=== PATIENT | male | born 1980 | race Caucasian/White ===

== ENCOUNTER 2023-08-14 12:13 | Emergency (ER) | payer BC, SELFPAY ==
[2023-08-14 12:41] VITALS: BP 136/99
[2023-08-14 14:04] VITALS: BMI 25.1
--- NOTE | 2023-08-14 14:26 | ED.GENMED ---
History of Present Illness
General
Chief Complaint: Fall
Source: patient
Time Seen by Provider: 08/14/23 13:55
Travel History
Have you had any contact with someone who has COVID-19?: No
Do you have any symptoms of coronavirus? Fever > 100 degrees, chills, cough, shortness of breath, sore throat, loss of taste or smell, muscle aches, or headache?: No
History of Present Illness
History of Present Illness:
42-year-old male presenting to the emergency department for evaluation after he accidentally fell last night around 10 PM, patient admits to having a couple of alcoholic beverages at the time and noted he sustained a laceration to the inner and
outer aspect of his lower lip. Patient states that due to the drinking did not feel it would be maldonado to drive to the emergency department so came to the ER today for further evaluation. He notes a chipped left lateral incisor to the upper jawline.
No other injuries were sustained. He denies any headache, loss consciousness, vomiting, visual changes or any other concerns. Patient states last tetanus was around 5 years ago.
Past History
Past History
ED Past Medical History: Psychiatric
ED Past Surgical History: None
Social History
Tobacco: Non-smoker
Alcohol: Occasional
Drug: None
Personal: Single
Living: alone
Review of Systems
Review of Systems
All Other Systems: ROS reviewed and negative except as documented in HPI and ROS
Phy Exam
Physical Exam
Physical Exam:
GENERAL: Alert , in no apparent distress
EYE: conjunctiva clear
Head: Laceration to the lower lip along the outer surface does not cross the vermilion border
NECK: Supple,
ENT: mmm. Jagged very superficial laceration to the lower lip mucosa is already well-approximated and has granulation tissue. The upper left lateral incisor small chip but no dental avulsion or dental fracture
LUNGS: no acute respiratory distress
NEUROLOGICAL: Alert and oriented
SKIN: Warm and dry, skin intact.
MUSCULOSKELETAL: well perfused.
PSYCH: Normal and appropriate interaction.
Scores
Heart Failure Risk
Heart Failure Risk Score: Not Applicable
Heart Score for Chest Pain Patients
STEMI patient?: Not applicable
Withdrawal Assessment of Alcohol
Withdrawal Assessment Completed?: Not applicable
Course
Vital Signs
Initial and Last Documented VS:
Initial Vital Signs
Temp Pulse Resp BP Pulse Ox
99.2 F 106 17 136/99 98
08/14/23 12:41 08/14/23 12:41 08/14/23 12:41 08/14/23 12:41 08/14/23 12:41
Last Documented Vital Signs
Temp Pulse Resp BP Pulse Ox
99.2 F 106 17 136/99 98
08/14/23 12:41 08/14/23 12:41 08/14/23 12:41 08/14/23 12:41 08/14/23 12:41
Procedures
Laceration Closure
Lower Lip:
Status of Wound: clean
Size of Wound in cm: 1.25
Description of Wound Edges: sharp
Preparation: cleaned with saline
Anesthesia: 1% Lidocaine
Revision/Debridement: routine- no revision
Type of Closure: single layer closure
Skin Closure Material: 6-0 nylon
Number of sutures: 7
MDM/Problems Addressed
Differential Diagnosis Includes:
Inner and outer lip laceration, chipped tooth, I do not have concern for intracranial pathology
MDM/Problems Addressed:
42-year-old male presenting emergency ferment for evaluation after an accidental fall resulting in lower lip laceration on the inner and outer surface. The mucosal surface is mostly approximated and does not require any repair. Outer repair as
above. Patient will follow-up with primary care physician have sutures removed in 5 days. Advised on wound care as well as return precautions but otherwise stable for discharge home.
*Pulse Oximetry
Patient hypoxic: no
*Critical Care Note
Total Time (30-74mins, 75-104mins- exclusive of procedures): Not Applicable
ED Attending Note
-
Portions of this chart may have been created with voice recognition software.� Occasional wrong word or��sound alike� substitutions may have occurred due to the inherent limitations of voice recognition software.
Discharge Plan
Departure
Patient Disposition: Home (Routine Discharge)
Date of Disposition: 08/14/23
Time of Disposition: 14:26
Patient with high blood pressure during this ER visit?: Yes
Discharge Problem:
Laceration of lip, Accidental fall
Instructions: Laceration Repair With Stitches (DC)
Prescriptions:
No Action
No Current Medications
0
Activity Restrictions/Additional Instructions:
Suture removal in 5 days
Interventions
Interventions:
*Risk Screen - Suicide Last Done: 08/14/23 14:02
*General Assessment Last Done: 08/14/23 14:04
*Neglect/Abuse Screening Last Done: 08/14/23 14:02
ED- Fall Risk Assessment Last Done: 08/14/23 14:02
*ED COVID-19 Vaccine History Last Done: 08/14/23 14:02
*Nursing Disposition Last Done: 08/14/23 14:39
ED-Musculoskeletal Assessment Last Done: 08/14/23 14:04
ED- Neurological Assessment Last Done: 08/14/23 14:04
ED-Skin Assessment Last Done: 08/14/23 14:04
Discharge Date and Time
Discharge Date/Time: 08/14/23 14:40
== END 2023-08-14 14:40 | disposition home or self-care (01) ==
LOC: EMR 12:13
PROVIDERS: EMERGENCY PHYSICIAN Emergency Medicine; FAMILY PHYSICIAN Physician Assistant
DX: S01.511A Laceration without foreign body of lip, initial encounter (principal); W19.XXXA Unspecified fall, initial encounter
CPT/HCPCS: 99282; 12011